=== PATIENT | female | born 1985 | race Caucasian/White ===

== ENCOUNTER 2017-04-07 13:23 | Emergency (ER) | payer OTHER ==
[2017-04-07 13:40] VITALS: BMI 41.5
--- NOTE | 2017-04-07 13:44 | ED PDOC ---
Arrival/HPI - General Time Seen by Provider: 04/07/17 13:31 Historian: Patient - History of Present Illness Narrative History of Present Illness (Text): 04/07/17 13:39 31 year old female, with past medical history of sciatica, presents to the Emergency department complaining of intermittent chest discomfort, shoulder discomfort, epigastric and right upper abdominal discomfort since this morning. Patient informs sleeve gastrectomy two years ago and believes the symptoms are adverse effects from the procedure. Patient informs similar three episodes in the past. Patient denies any other significant past medical history but informs allergy to shellfish. Patient denies smoking or drinking. Patient denies any fever, chills, nausea, vomiting, diarrhea, chest pain, shortness of breath or any other complaints. Time/Duration: 1-3 hours Symptom Onset: Gradual Symptom Course: Unchanged Quality: Aching Activities at Onset: Light Context: Home Past Medical History - Provider Review Nursing Documentation Reviewed: Yes - Infectious Disease Hx of Infectious Diseases: None - Tetanus Immunization Tetanus Immunization: Up to Date - Past Medical History Past Medical History: No Previous - Cardiac Hx Cardiac Disorders: No - Pulmonary Hx Respiratory Disorders: No - Neurological Hx Neurological Disorder: No - HEENT Hx HEENT Disorder: No - Renal Hx Renal Disorder: No - Endocrine/Metabolic Hx Endocrine Disorders: No - Hematological/Oncological Hx Blood Disorders: Yes (History of blood clottting disorder, Unknown) - Integumentary Hx Dermatological Disorder: No - Musculoskeletal/Rheumatological Hx Musculoskeletal Disorders: Yes (sciatic pain) - Gastrointestinal Hx Gastrointestinal Disorders: No - Genitourinary/Gynecological Hx Genitourinary Disorders: No - Psychiatric Hx Psychophysiologic Disorder: No Hx Depression: No Hx Emotional Abuse: No Hx Physical Abuse: No Hx Substance Use: No - Past Surgical History Past Surgical History: No Previous - Surgical History Hx Gastric Bypass Surgery: Yes (sleeve) Other/Comment: jaw - Anesthesia Hx Anesthesia: Yes Hx Anesthesia Reactions: No - Suicidal Assessment Feels Threatened In Home Enviroment: No Family/Social History - Physician Review Nursing Documentation Reviewed: Yes Family/Social History: Unknown Family HX Smoking Status: Current Some Days Smoker Hx Alcohol Use: Yes Hx Substance Use: No Hx Substance Use Treatment: No Allergies/Home Meds Allergies/Adverse Reactions: Allergies shellfish derived Allergy (Verified 04/07/17 13:40) ANAPHYLAXIS Home Medications: Home Meds Medication Instructions Recorded Confirmed Aspirin [Aspirin Chewable] 81 mg PO DAILY 09/06/15 04/07/17 Review of Systems - Physician Review All systems were reviewed & negative as marked: Yes - Review of Systems Constitutional: Normal. absent: Fevers Eyes: Normal ENT: Normal Respiratory: Normal. absent: SOB Cardiovascular: Chest Pain Gastrointestinal: Abdominal Pain. absent: Diarrhea, Nausea, Vomiting Genitourinary Female: Normal Musculoskeletal: Other (shoulder discomfort) Skin: Normal Neurological: Normal Endocrine: Normal Hemo/Lymphatic: Normal Psychiatric: Normal Physical Exam Vital Signs Reviewed: Yes Vital Signs Temp Pulse Resp BP Pulse Ox 04/07/17 18:53 97.8 F 68 18 128/89 100 04/07/17 14:02 98.1 F 69 17 121/60 97 Temperature: Afebrile Respiratory Rate: Normal Appearance: Positive for: Well-Appearing, Non-Toxic, Comfortable Pain Distress: None Mental Status: Positive for: Alert and Oriented X 3 - Systems Exam Head: Present: Atraumatic, Normocephalic Pupils: Present: PERRL Extroacular Muscles: Present: EOMI Conjunctiva: Present: Normal Mouth: Present: Moist Mucous Membranes Neck: Present: Normal Range of Motion Respiratory/Chest: Present: Clear to Auscultation, Good Air Exchange. No: Respiratory Distress, Accessory Muscle Use Cardiovascular: Present: Regular Rate and Rhythm, Normal S1, S2. No: Murmurs Abdomen: Present: Normal Bowel Sounds. No: Tenderness, Distention, Peritoneal Signs Back: Present: Normal Inspection Upper Extremity: Present: Normal Inspection. No: Cyanosis, Edema Lower Extremity: Present: Normal Inspection. No: Edema Neurological: Present: GCS=15, CN II-XII Intact, Speech Normal Skin: Present: Warm, Dry, Normal Color. No: Rashes Psychiatric: Present: Alert, Oriented x 3, Normal Insight, Normal Concentration Medical Decision Making ED Course and Treatment: 04/07/17 13:47 Impression: 31 year old female presents to the Emergency department for chest, epigastric and shoulder discomfort. Plan: -- Labs -- EKG -- Chest X-ray -- oxycodone -- zofran -- US of Abdomen -- Reassess and disposition Progress Notes: 04/07/17 13:48 EKG: Ordered, reviewed, and independently interpreted the EKG. Rate : 67 BPM Rhythm : NSR Interpretation : No ST-segment elevations or depressions, no T-wave inversions, normal intervals. 04/07/17 16:00 Chest X-ray reviewed by radiologist, shows poor inspiration with low lung volumes, crowded bronchovascular markings and mild bibasilar atelectasis. - Lab Interpretations Lab Results: 04/07/17 14:14 04/07/17 14:14 Lab Results 04/07/17 14:14: Sodium 143, Potassium 3.8, Chloride 104, Carbon Dioxide 26, Anion Gap 17, BUN 14, Creatinine 0.7, Est GFR ( Amer) > 60, Est GFR (Non- Af Amer) > 60, Random Glucose 98, Calcium 10.3, Total Bilirubin 0.4, AST 121 H, ALT 83 H, Alkaline Phosphatase 143 H, Lactate Dehydrogenase 509, Total Creatine Kinase 137, Troponin I < 0.01, Total Protein 8.6 H, Albumin 4.6, Globulin 4.0, Albumin/Globulin Ratio 1.2, Lipase 168 04/07/17 14:14: D-Dimer, Quantitative 296 H 04/07/17 14:14: WBC 13.0 H D, RBC 5.01, Hgb 12.0, Hct 38.9, MCV 77.6 L, MCH 24.0 L, MCHC 30.8 L, RDW 16.8 H, Plt Count 324, MPV 11.2 H, Gran % 73.3 H, Lymph % (Auto) 18.8 L, [place] % (Auto) 4.8, Eos % (Auto) 2.9, Baso % (Auto) 0.2, Gran # 9.53 H, Lymph # (Auto) 2.5, [place] # (Auto) 0.6, Eos # (Auto) 0.4, Baso # ( Auto) 0.02 - RAD Interpretation Radiology Orders: 04/07/17 13:50 CHEST PORTABLE [RAD] Stat ABDOMEN COMPLETE [US] Stat 04/07/17 18:29 ANGIO CHEST PE PROTOCOL [CT] Stat - Medication Orders Current Medication Orders: Discontinued Medications Ondansetron HCl (Zofran Odt) 8 mg PO STAT STA Stop: 04/07/17 13:53 Last Admin: 04/07/17 14:27 Dose: 8 mg Oxycodone/Acetaminophen (Percocet 5/325 Mg Tab) 2 tab PO STAT STA Stop: 04/07/17 13:53 Last Admin: 04/07/17 14:28 Dose: 2 tab MAR Pain Assessment Document 04/07/17 14:28 RR (Rec: 04/07/17 14:28 RR [id number]) Pain Reassessment Is this a pain reassessment? Yes Sleep Is patient sleeping during reassessment? No Presence of Pain Presence of Pain Yes Pain Scale Used Pain Scale Used Numeric Location Pain Location Body Site Generalized Description Description Intermittent - Scribe Statement The provider has reviewed the documentation as recorded by the Scribe Dilip Veliz. All medical record entries made by the Scribe were at my direction and personally dictated by me. I have reviewed the chart and agree that the record accurately reflects my personal performance of the history, physical exam, medical decision making, and the department course for this patient. I have also personally directed, reviewed, and agree with the discharge instructions and disposition. Disposition/Present on Arrival - Present on Arrival Any Indicators Present on Arrival: No History of DVT/PE: No History of Uncontrolled Diabetes: No Urinary Catheter: No History Surgical Site Infection Following: None - Disposition Have Diagnosis and Disposition been Completed?: Yes Diagnosis: Biliary colic, Gallstone Disposition: HOME/ ROUTINE Disposition Time: 20:51 Patient Plan: Discharge Condition: GOOD Discharge Instructions (ExitCare): Gallstones Additional Instructions: Bahman Salgado this is happening to you. Please see the surgeon as soon as you can so you can get the gallstone removed. Until then, do not eat any fat, because it will make you hurt. Return to us if any problems. [place]- Dr. Richard Roman Referrals: PCP,NO [Primary Care Provider] - Follow up with primary Ron Izaguirre MD [Staff Provider] - Follow up with primary
[2017-04-07] MEDS ORDERED: Oxycodone/Acetaminophen 5/325 mg Tab PO STA (13:52)
[2017-04-07 14:52] LABS: ALB/GLOB RATIO 1.2 (1.1-1.8); ALBUMIN 4.6 g/dL (3.0-4.8); ALT/SGPT 83 U/L (7-56); AST/SGOT 121 U/L (14-36); BLOOD UREA NITROGEN 14 mg/dL (7-21); CALCIUM 10.3 mg/dL (8.4-10.5); GFR AFRICAN-AMERICAN > 60; GFR NON-AFRICAN AMERICAN > 60; LIPASE 168 U/L (23-300)
[2017-04-07 15:04] LABS: TROPONIN I < 0.01 ng/mL
[2017-04-07 15:06] LABS: BASO % 0.2 % (0.0-3.0); EOS % 2.9 % (1.5-5.0); GRAN % 73.3 % (50.0-68.0); LYMPH % 18.8 % (22.0-35.0); MEAN CELL VOLUME 77.6 fl (80.0-105.0); MEAN CORPUSCULAR HGB CONC 30.8 g/dl (31.0-37.0); MEAN PLATELET VOLUME 11.2 fl (7.0-11.0); MONO % 4.8 % (1.0-6.0); RBC 5.01 10^6/uL (3.5-6.1); RED CELL DISTRIBUTION WIDTH 16.8 % (11.5-14.5)
[2017-04-07 15:07] LABS: BASO # 0.02 K/mm3 (0.0-2.0); EOS # 0.4 (0.0-0.7); GRAN # 9.53 (1.4-6.5); LYMPH # 2.5 (1.2-3.4); MONO # 0.6 (0.1-0.6)
--- NOTE | 2017-04-07 15:39 | RAD ---
HISTORY: epigastric and shoulder pain (r side) COMPARISON: Comparison chest dated 05/26/2014 FINDINGS: LUNGS: Poor inspiration with low lung volumes, crowded bronchovascular markings and mild bibasilar atelectasis. PLEURA: No significant pleural effusion identified, no pneumothorax apparent. CARDIOVASCULAR: Heart appears mildly enlarged. TheNormal. OSSEOUS STRUCTURES: No significant abnormalities. VISUALIZED UPPER ABDOMEN: Normal. OTHER FINDINGS: None. IMPRESSION: Poor inspiration with low lung volumes, crowded bronchovascular markings and mild bibasilar atelectasis.
--- NOTE | 2017-04-07 16:49 | US ---
HISTORY: Biliary Colic COMPARISON: Comparison made with CT scan of the abdomen pelvis 09/06/2015. TECHNIQUE: Sonographic evaluation of the abdomen. FINDINGS: LIVER: The liver was measured at 16.5 cm in CC dimension however note that the cm. Liver demonstrates increased echotexture suggesting fatty infiltration however other infiltrative hepatocellular disease process not excluded. . No mass. No intrahepatic bile duct dilatation. GALLBLADDER: Cholelithiasis. No evidence of pericholecystic fluid collections or sonographic Muse sign. COMMON BILE DUCT: Measures 21 mm. No stones. No dilatation. PANCREAS: Unremarkable as visualized. No mass. No ductal dilatation. RIGHT KIDNEY: Right kidney measures approximately 9.9 x 4.8 x 5.3cm. Normal echogenicity. No calculus, mass, or hydronephrosis. LEFT KIDNEY: Left kidney measures approximate 12.0 x 5.0 x 5.2cm. Normal echogenicity. No calculus, mass, or hydronephrosis. SPLEEN: Normal in size and contour. No mass. AORTA: No aneurysmal dilatation. IVC: Unremarkable. OTHER FINDINGS: None. IMPRESSION: Hepatomegaly with probable fatty hepatic infiltration however other infiltrative hepatocellular disease process not excluded. Cholelithiasis.
[2017-04-07] MEDS ORDERED: Iodixanol 320 MG/ML 100 ML BOTTLE IV ONE (18:39)
[2017-04-07 18:54] VITALS: BP 128/89; PULSE 68; RESP 18; TEMP 97.8; O2SAT 100
--- NOTE | 2017-04-07 20:20 | CT ---
EXAM: CT Angiography Chest With Intravenous Contrast CLINICAL HISTORY: 31 years old, female; Abnormal findings; Abnormal diagnostic tests; Elevated d-dimer; Additional info: Positive d. Dimer TECHNIQUE: Axial computed tomographic angiography images of the chest with intravenous contrast using pulmonary embolism protocol. All CT scans at this facility use one or more dose reduction techniques, viz.: automated exposure control; ma/kV adjustment per patient size (including targeted exams where dose is matched to indication; i.e. head); or iterative reconstruction technique. MIP reconstructed images were created and reviewed. Coronal and sagittal reformatted images were created and reviewed. CONTRAST: 90 mL of VISIPAQUE administered intravenously. COMPARISON: DX - CHEST PORTABLE 2017-04-07 14:48 FINDINGS: Limitations: Suboptimal timing of bolus. Pulmonary arteries: No definite pulmonary embolism. Aorta: No aneurysm. No dissection. Lungs: No consolidation. Pleural space: No significant effusion. No pneumothorax. Heart: Mild cardiomegaly. No significant pericardial effusion. 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 No acute fracture. Early degenerative changes of spine. Probable bone island. Soft tissues: Unremarkable. Lymph nodes: No pathologically enlarged lymph nodes. Stomach and bowel: Postsurgical changes of stomach. IMPRESSION: 1. No definite CT evidence of pulmonary embolism. 2. Incidental/non-acute findings are described above.
--- NOTE | 2017-04-08 09:48 | CARD ---
APPROVED REPORT EKG Measurement Heart [id number] <Conclusion> Normal sinus rhythm Normal ECG No change
== END 2017-04-07 21:17 | disposition home or self-care (01) ==
LOC: ED 13:23
DX: K80.70 Calculus of gallbladder and bile duct without cholecystitis without obstruction (principal); Z91.013 Allergy to seafood; Z98.84 Bariatric surgery status
CPT/HCPCS: 71045; 71275; 76700; 80053; 82550; 83615; 83690; 84484; 85025; 85378; 93005; 99283; Q9967